=== PATIENT | female | born 1980 | race Caucasian/White ===

== ENCOUNTER → 2021-11-08 13:58 | Outpatient (BNVA) | payer OTHER, SELFPAY | PROVIDERS: PCP Physician Assistant Medical; Visit Provider Dietitian, Registered | DX: E66.9 Obesity, unspecified (principal) | CPT/HCPCS: 97802 ==

== ENCOUNTER 2022-04-16 10:58 | Outpatient (REF) | payer OTHER, SELFPAY ==
[2022-04-16 14:26] LABS: C Reactive Protein 1.14 mg/dL (< or = 0.50)
[2022-04-16 14:59] LABS: Erythrocyte Sedimentation Rate 28 MM/HR (0-20)
== END 2022-04-16 10:59 | disposition home or self-care (01) ==
LOC: HO.10HDL 10:58
PROVIDERS: Visit Provider Internal Medicine Rheumatology
DX: M25.50 Pain in unspecified joint (principal); M47.816 Spondylosis without myelopathy or radiculopathy, lumbar region; M19.049 Primary osteoarthritis, unspecified hand; M79.7 Fibromyalgia
CPT/HCPCS: 36415; 85652; 86140; 99212

== ENCOUNTER 2023-01-09 10:01 | Outpatient (REF) | payer OTHER, SELFPAY ==
--- NOTE | 2023-01-09 10:05 | EMG_ITS ---
Bilateral tibial and peroneal motor studies were performed. Bilateral superficial peroneal, sural, and medial and lateral plantar mixed studies were performed. Tibial H reflexes were obtained. Needle examination was performed. 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 MD MALIKA Alfredo/JIMBO / [id number]
== END 2023-01-09 10:02 | disposition home or self-care (01) ==
LOC: HO.NEURO 10:01
PROVIDERS: PCP Internal Medicine; Visit Provider Nurse Practitioner Family
DX: R20.2 Paresthesia of skin (principal); M25.50 Pain in unspecified joint
CPT/HCPCS: 95886; 95913

== ENCOUNTER 2023-02-05 10:11 | Outpatient (AMB) | payer OTHER, SELFPAY ==
[2023-02-05 10:47] VITALS: BMI 32.1
--- NOTE | 2023-02-05 10:47 | MHC.AMNUTRGE ---
Intake VS Expanded 02/05/23 10:47 Height 5 ft 2 in Weight 175 lb 7.807 oz BMI 32.1 Intake Visit Reasons: Follow up Allergies topiramate [From Topamax] Adverse Reaction (Unknown, Verified 04/16/22 09:39) Unknown HPI Nutrition Presentation Details Pt presents today for MNT for morbid obesity. The Pt was referred by Dr. Sylvester Isaac Pt was 203 lbs in 11/2021 at time of referral. Pt reports having had a cholecystectomy in Jul 2022 and since then she reports increased bowel movements, and diarrhea. Pt reports self treating diarrhea with imodium. Pt reports this has further contributed to weight loss, of 25 lbs since Jul 2022. She reports that for the past month or so she is maintaining at 175 lbs. Pt reports working n not eating past 7 pm and this often leads to increased diarrhea. food frequency dairy : reports omitting, may have cheese 2 x/wk fruits : juice and fruit 1-2 /d starches : rice/root veg, pasta 16 serving/d vegetables: 0-1serving/d protein foods: poultry, beef, eggs beverages: water, gatorate, juice physical activity:daily life activities SMoking: denies ETOH: denies Most Recent Diabetes Results: No Data to Display [facility] Medical History (Updated 12/30/22 @ 15:05 by LAMONTE Schwartz) Diffuse arthralgia Surgical History (Updated 04/10/22 @ 13:11 by ELIZABETH Giles) History of removal of ovarian cyst Hx of section Hx of hysterectomy Family History (Updated 04/10/22 @ 13:14 by ELIZABETH Giles) Mother Diabetes Hypertension Depression Arthritis Father Diabetes Myocardial infarction, Onset Age: 56 Stroke Brother Diabetes Lung cancer Maternal Grandmother Breast cancer Social History (Updated 04/16/22 @ 09:42 by Pancho Mejia LPN) Household Members: Family Housing: House Alcohol intake: never Patient Tobacco Use Status: Never used Tobacco e-Cigarette/Vaping Use: Never Used service: No Current occupational status: unemployed 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 Pt's set goal (Date: 11/08/21 ): reduce on carbohydrate portion in the evening : 1 c cooked starch at follow up (Date: ): met 25% 50% 100% Not met Used wt : 203 lbs ( 92 kg) Est kcal as per MSJ: 1855-250 = 1605 (40% carb, 30% fat/prot) Est fluid needs: 2300 ml/d (25 ml/kg bw) Rec fiber: increase to 8-10 g per day and gradually increase to 25 g/d or as tolerated Rec Na: < 2000 mg /d Educate patient on: (R= Reviewed, V = verbalizes understanding N/R= Needs review N/A= not applicable) Food sources of carbohydrates and serving adequate serving sizes : N/R Difference between complex carbohydrates and simple carbohydrates, role of fiber: R Differences between fats (MUFA/PUFA/saturated fats, trans fats) and food sources of various fats: R Food sources of sodium and salt and healthy modifications for heart health and kidney health: R Vitamins and minerals: R How to interpret food labels: N/R Healthy Plate method concept: R Physical activity: benefits and precaution: R Patient Instructions: Discuss diarrhea episodes with your doctor and may recommend referral to surplus property disposal agent Keep hydrated by having soups/water Follow low fat diet and incorporate soluble fiber Coding Level of Care Code Nutr Indiv Subseq (32851) Diagnoses Obesity (BMI 30-39.9) E66.9 Time Spent (min) 25
== END 2023-02-05 11:30 | disposition home or self-care (01) ==
PROVIDERS: PCP Internal Medicine; Visit Provider Dietitian, Registered
DX: E66.9 Obesity, unspecified (principal)

== ENCOUNTER → 2023-02-05 10:11 | Outpatient (BNVA) | payer OTHER, SELFPAY | PROVIDERS: PCP Internal Medicine; Visit Provider Dietitian, Registered | DX: E66.9 Obesity, unspecified (principal); Z68.32 Body mass index [BMI] 32.0-32.9, adult | CPT/HCPCS: 97803 ==

== ENCOUNTER 2023-03-13 15:17 | Outpatient (AMB) | payer OTHER, SELFPAY ==
--- NOTE | 2023-03-13 15:25 | MHC.OFFVIS ---
Intake Vital Signs 03/13/23 15:27 Height 5 ft 2 in Weight 172 lb 8 oz BMI 31.5 BP 118/80 Blood Pressure Location Lt brachial Position Sitting Pulse 63 Pulse Source Pulse Oximeter Pulse Oximetry (%) 98 Oxygen Delivery Method Room Air Intake Visit Reasons: f/u appt couldn't come yesterday - Confirmed Intake Note: Pt presents today in fup for migraines, she states last 3 weeks shes having more issues . Recent uptick in loose bowels and headaches, shes lost weight . She did have a nerve conduction study recently also . Allergies topiramate [From Topamax] Adverse Reaction (Unknown, Verified 03/13/23 15:31) Unknown Medication List - Last Reconciled 03/13/23 by Mya Scott, LAMONTE baclofen 10 - 20 mg (1 - 2 x 10 mg) PO BEDTIME PRN 30 days zgomeqdqeu-zcibdfgeifxmn-powm 50-325-40 mg 1 tab PO Q4H PRN 30 days zcptzpuqny-jtaedapruzouf-kseo 50-325-40 mg 1 cap PO Q4H PRN 30 days fluticasone propionate 50 mcg/actuation (Allergy Relief (fluticasone)) 2 sprays intranasal DAILY ibuprofen 800 mg PO Q8H PRN nortriptyline 40 mg (4 x 10 mg) PO BEDTIME 30 days tizanidine (Zanaflex) 2 mg PO Q8H PRN HPI HPI Comments History of Present Illness Details 42-yr-old female presents for f/u visit. Pt was last seen by me in September 2020 at [facility]. Since the last visit, pt had reached out to f/u on previously ordered BLE EMG/NCS. She often has buring foot pain especially when at work and on her feet all day. The BLE EMG/NCS results were c/w a brittney tarsal tunnel syndrome. After she had the BLE EMG/NCS- she has a sensation of and insect running over her left upper back. This can happen if sitting or at work. She reports that for some time, her migraines were under control. However in the last month or two, she has had an almost daily migraine a/w brain fog, photo/phonophobia. She is off her Aimovig, which was previously very helpful- states insurance denied it. She is using fIoricet prn. She is working at [employer] in the [employer]. 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 [facility] Medical History Diffuse arthralgia Surgical History History of removal of ovarian cyst Hx of hysterectomy Hx of section Family History Mother Diabetes Hypertension Depression Arthritis Father Diabetes Myocardial infarction, Onset Age: 56 Stroke Brother Diabetes Lung cancer Maternal Grandmother Breast cancer Social History Household Members: Family Housing: House Alcohol intake: never Patient Tobacco Use Status: Never used Tobacco e-Cigarette/Vaping Use: Never Used service: No Current occupational status: unemployed Current occupation: Former DIRECTOR OF RETENTION/SCHOOL BUSINESS SOLUTIONS ANALYST Review of Systems Const All systems reviewed & are unremarkable except as noted in HPI and below Physical Exam Vital Signs: Last Vital Signs Pulse 63 03/13/23 15:27 BP 118/80 03/13/23 15:27 Pulse Ox 98 03/13/23 15:27 Oxygen Delivery Method Room Air 03/13/23 15:27 BMI result Body Mass Index 31.5 Const General: cooperative and no acute distress Orientation/consciousness: patient oriented x3 HEENT Head: Yes normocephalic Resp Effort & Inspection: normal respiratory effort and able to speak in complete sentences Back/Spine/Pelvis Other: Left upper back muscle tightness Neuro General: patient oriented x3, gait normal and CN's II-XI intact bilaterally Cognition (Neuro): normal cognition Motor exam (neuro): 5/5 motor strength present throughout Deep tendon reflexes (DTR's): Right triceps reflex intensity grade: 2+, Left triceps reflex intensity grade: 2+, Rt Biceps (C5, C6): 2+, Left biceps reflex intensity grade: 2+, Right brachioradialis reflex intensity grade: 2+, Left brachioradialis reflex intensity grade: 2+, Right patellar reflex intensity grade: 2+ and Left patellar reflex intensity grade: 2+ Psych Appearance: grossly normal Mental Status: mental status grossly normal Speech and movement: Normal speech and movement present Affect: normal affect Attitude: cooperative Thought process: Normal thought process present Thought content: Normal thought content present Insight: Good insight present (Psych) Judgement: Good judgement present (Psych) Assessment & Plan Assessment & Plan (1) Tarsal tunnel syndrome, bilateral: Code(s): G57.53 - Tarsal tunnel syndrome, bilateral lower limbs (2) Cervicalgia: Code(s): M54.2 - Cervicalgia (3) Paresthesia: Code(s): R20.2 - Paresthesia of skin (4) Migraine without aura: Code(s): G43.009 - Migraine without aura, not intractable, without status migrainosus Plan Reviewed BLE EMG/NCS- brittney tarsal tunnle syndrome. Will request orthopedic consult- [facility] For cervicalgia/upper back muscle tightness/paresthesias: Will refer pt to [facility] [place]. For acute migriane tx: Trial Trudhessa sample today in hopes this breaks current prolonged migraine attack cycle. Fioricet prn. Previous acute migraine tx's: Sumatriptan helepd but caused chest tightness.. Frovatriptan- caused chest pressure. Future considerations: Gepant For migraine prevention- Resume Aimovig 140mg/ml. Continue Nortriptyline 40mg qhs. Continue Baclofen 10-20mg qhs. Previous migraine tx trials- Topamax- not tolerated. Propranolol- caused chest tightness. Sample given: Trudhessa 0.725mg/spray kit 1 box given. Instructions: 1 dose prn migraine, may repeat in 1 hr, Lot # [id number], exp 05/15/23 Orders: Orders PT Evaluation and Treatment 03/13/23 M54.2 - Cervicalgia, R20.2 - Paresthesia of skin Referrals Orthopedics Referral G57.53 - Tarsal tunnel syndrome, bilateral lower limbs, R20.2 - Paresthesia of skin Medications: New erenumab-aooe (Aimovig Autoinjector) 140 mg subcut ONCE 30 days 1 mL 6RF erenumab-aooe (Aimovig Autoinjector) 140 mg subcut ONCE 30 days 1 mL 6RF dihydroergotamine (Trudhesa) 1 spray into each nostril, MR in 1 hr (max 2 doses per day or 3 doses per week) intranasally PRN; 28 days 4 mL 6RF migraine headache G43.009 - Migraine without aura, not intractable, without status migrainosus Coding Level of Care Code Est Pt Level 4 (08292) Diagnoses Tarsal tunnel syndrome, bilateral G57.53 Cervicalgia M54.2 Paresthesia R20.2 Migraine without aura G43.009
[2023-03-13 15:27] VITALS: BP 118/80; PULSE 63; O2SAT 98; BMI 31.5
== END 2023-03-14 08:16 | disposition home or self-care (01) ==
PROVIDERS: PCP Internal Medicine; Visit Provider Nurse Practitioner Family
DX: G57.53 Tarsal tunnel syndrome, bilateral lower limbs (principal); M54.2 Cervicalgia; R20.2 Paresthesia of skin; G43.009 Migraine without aura, not intractable, without status migrainosus
CPT/HCPCS: 99214

== ENCOUNTER → 2023-03-13 15:17 | Outpatient (BNVA) | payer OTHER, SELFPAY | PROVIDERS: PCP Internal Medicine; Visit Provider Nurse Practitioner Family | DX: G57.53 Tarsal tunnel syndrome, bilateral lower limbs (principal); M54.2 Cervicalgia; R20.2 Paresthesia of skin; G43.009 Migraine without aura, not intractable, without status migrainosus; Z79.899 Other long term (current) drug therapy | CPT/HCPCS: 99212 ==

== ENCOUNTER 2023-08-20 09:29 | Outpatient (REF) | payer OTHER, SELFPAY ==
--- NOTE | ~2023-08-20 | MR_ITS ---
EXAMINATION: MR BRAIN WITHOUT AND WITH CONTRAST CLINICAL INFORMATION: Headache with orthostatic component COMPARISON: None available. TECHNIQUE: Multiplanar, multisequence MRI of the brain was obtained before and after the intravenous administration of 8 mL Gadavist. FINDINGS: No acute intracranial hemorrhage or infarct. Scattered periventricular and deep white matter T2/FLAIR hyperintensities, nonspecific. No abnormal intraparenchymal enhancement. No midline shift or hydrocephalus. No acute extra-axial fluid collections. The osseous structures are unremarkable. The pituitary gland, pineal gland and remaining midline structures are unremarkable. No orbital pathology. Mild mucosal thickening involving the ethmoid and right maxillary sinuses. The mastoid air cells are clear. MR/MR head/brain wo/w con IMPRESSION: -No acute intracranial abnormality. -Nonspecific scattered periventricular and deep white matter T2/FLAIR hyperintensities. -Mild ethmoid and right maxillary sinus disease.
[2023-08-20] MEDS: gadobutroL 10 ML VIAL IVPUSH (10:48)
== END 2023-08-20 09:30 | disposition home or self-care (01) ==
LOC: HO.MRI 09:29
PROVIDERS: PCP Internal Medicine; Visit Provider Nurse Practitioner Family
DX: R51.0 Headache with orthostatic component, not elsewhere classified (principal); H53.8 Other visual disturbances; H93.19 Tinnitus, unspecified ear; E66.9 Obesity, unspecified
CPT/HCPCS: 70553; A9585

== ENCOUNTER 2024-03-04 09:52 | Outpatient (AMB) | payer OTHER, SELFPAY ==
--- NOTE | 2024-03-04 10:35 | MHC.OFFVIS ---
Intake Visit Reasons: Follow up Intake Note: patient still having migraines doesnt have meds Allergies topiramate [From Topamax] Adverse Reaction (Unknown, Verified 03/04/24 10:36) Unknown Medication List - Last Reconciled 03/04/24 by LAMONTE Schwartz baclofen 10 - 20 mg (1 - 2 x 10 mg) PO BEDTIME PRN 30 days gmiqgfcktl-xxrqkezfbzijt-heju 50-325-40 mg 1 cap PO Q4H PRN 30 days pavwdcbhni-ubparvbvhjawm-tvwl 50-325-40 mg 1 tab PO Q4H PRN 30 days dihydroergotamine (Trudhesa) 1 spray into each nostril, MR in 1 hr (max 2 doses per day or 3 doses per week) intranasally PRN; 28 days fluticasone propionate 50 mcg/actuation (Allergy Relief (fluticasone)) 2 sprays intranasal DAILY fremanezumab-vfrm (Ajovy) 225 mg (1.5 mL) subcut ONCE 30 days ibuprofen 800 mg PO Q8H PRN metoclopramide HCl (Reglan) 5 - 10 mg (1 - 2 x 5 mg) PO Q4-6H PRN 7 days MDD 4 nortriptyline 40 mg (4 x 10 mg) PO BEDTIME 30 days omeprazole 20 mg PO DAILY 30 days prednisone 6 tabs x's 3 days, 5 tabs x's 3 days, 4 tabs x's 3 days, 3 tabs x's 3 days, 2 tabs x's 3 days, 1 tab x's 3 days, then stop. orally daily; 21 days propranolol ER 60 mg PO BEDTIME 30 days scopolamine base (Transderm-Scop) 1 patch transdermal Q3D PRN 2 weeks tizanidine (Zanaflex) 2 mg PO Q8H PRN zolmitriptan (Zomig) 1 spray intranasal Q2H PRN 30 days HPI Comments Details: 43-yr-old female presents for f/u visit. Pt denies any significant interval medical changes. Pt reports she is having an almost daily migraine, and some days the migraines are so severe, she cannot even get OOB. She was having bouts of dizziness and nausea- scopolamine helps. She did not start vestibular PT. Meclizine can help some. She is out of most of her migraine medications- did not realize insurance approved Ajovy rather than Aimovig. Amitriptyline- caused sedation. She stopped Nortriptyline- unsure why Tried Propranolol- helped but this caused blurry vision, made vision difficult to see- letters looked they were moving. Triptans have helped but caused chest heaviness. Trudhessa nasal spray was helpful and well-tolerated. Baseline headache characteristics: Pressure and throbbing in various locations can be bifrontal, biocciptal, or holocranial a/w right eye stabbing pain, photophobia, phonophobia, nausea, brain fog, activity intolerance. She does not believe she ever saw orthopedics for eval of the tarsal tunnel syndrome- she continues to have burning sensation in her feet, worse if she is on her feet all day. This is better since taking a job where she can sit more. 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 Physical Exam Const General: cooperative and no acute distress Orientation/consciousness: patient oriented x3 Resp Effort & Inspection: normal respiratory effort and able to speak in complete sentences Neuro General: patient oriented x3 Cranial nerves: Yes CN's II-XII intact bilaterally Cognition (Neuro): normal cognition Psych Appearance: grossly normal Mental Status: mental status grossly normal Speech and movement: Normal speech and movement present Affect: normal affect Attitude: cooperative Assessment & Plan Assessment & Plan (1) Migraine without aura: Code(s): G43.009 - Migraine without aura, not intractable, without status migrainosus Category: Medical (2) Vertigo: Code(s): R42 - Dizziness and giddiness Category: Medical (3) Tarsal tunnel syndrome, bilateral: Code(s): G57.53 - Tarsal tunnel syndrome, bilateral lower limbs Category: Medical Plan Reviewed BLE EMG/NCS- brittney tarsal tunnle syndrome. Will f/u on orthopedic consult- [facility] ? For dizziness and nausea: Scopolamine patch prn Meclizine prn. Vestibular PT ? For acute migriane tx: Trial Ubrogepant (Ubrelvy) 100mg tab, 1/2 - 1 tab (50-100mg) at onset of headache, may repeat in 2 hours. Max of 2 tabs (200mg) per 24 hours. May adjunct with OTC Tylenol 650mg q 4 hours, Ibuprofen 600mg q 6 hours, or Naproxen 440mg q 12 hrs prn. Do not take w/ Butalbital (Fioricet or Fiorinal). Potential adverse effects, include but are not limited to fatigue, nausea, dry mouth, constipation Fioricet prn- sparingly. Previous acute migraine tx's: Sumatriptan helped but caused chest tightness. Zomig nasal spray- caused chest heaviness. Frovatriptan- caused chest pressure. Trudhessa sample- was helpful, but was denied by insurance. ? For migraine prevention- Again start Ajovy 225mg sc q month. We will need to resubmit a new priro auth request, as previous one prior to pt starting Ajovy. Continue Nortriptyline 40mg qhs. Continue Baclofen 10-20mg qhs. Previous migraine tx trials- Topamax- not tolerated. Propranolol- caused chest tightness/vision changes. Aimovig was helpful- stopped d/t insurance coverage. Orders: Referrals Orthopedics Referral G57.53 - Tarsal tunnel syndrome, bilateral lower limbs, R20.2 - Paresthesia of skin Medications: New ubrogepant (Ubrelvy) take at onset of migraine, may repeat in 2hrs (may take w/ Ibuprofen) 50 - 100 mg (0.5 - 1 x 100 mg) PO ONCE 30 days PRN 16 tabs 3RF migraine headache Refilled nortriptyline 40 mg (4 x 10 mg) PO BEDTIME 30 days 120 caps 3RF Discontinued wzirgzwvqr-ntwlswwgxltdx-hgjv 50-325-40 mg Discontinued Reason: Duplicate 1 cap PO Q4H 30 days PRN 20 caps 1RF tension headache propranolol ER Discontinued Reason: Doctor's Order 60 mg PO BEDTIME 30 days 30 caps 3RF prednisone Discontinued Reason: Patient Completed Course 6 tabs x's 3 days, 5 tabs x's 3 days, 4 tabs x's 3 days, 3 tabs x's 3 days, 2 tabs x's 3 days, 1 tab x's 3 days, then stop. orally daily; 21 days 63 tabs 0RF zolmitriptan (Zomig) administer into one nostril (only); alternate nostrils; do not exceed 10 mg /24 hrs Discontinued Reason: Doctor's Order 1 spray intranasal Q2H 30 days PRN 6 ea 6RF headache Coding Level of Care Code Est Pt Level 4 (05690) Diagnoses Migraine without aura G43.009 Vertigo R42 Tarsal tunnel syndrome, bilateral G57.53
== END 2024-03-04 11:03 | disposition home or self-care (01) ==
PROVIDERS: PCP Internal Medicine; Visit Provider Nurse Practitioner Family
DX: G43.009 Migraine without aura, not intractable, without status migrainosus (principal); R42 Dizziness and giddiness; G57.53 Tarsal tunnel syndrome, bilateral lower limbs
CPT/HCPCS: 99214

== ENCOUNTER → 2024-03-04 09:52 | Outpatient (BNVA) | payer OTHER, SELFPAY | PROVIDERS: PCP Internal Medicine; Visit Provider Nurse Practitioner Family | DX: G43.009 Migraine without aura, not intractable, without status migrainosus (principal); R42 Dizziness and giddiness; G57.53 Tarsal tunnel syndrome, bilateral lower limbs | CPT/HCPCS: 99212 ==

== ENCOUNTER 2024-07-02 14:20 | Outpatient (AMB) | payer OTHER, SELFPAY ==
--- NOTE | 2024-07-02 14:41 | MHC.OFFVIS ---
Vital Signs 07/02/24 14:43 Height 5 ft 2 in Weight 185 lb 2 oz BMI 33.9 BP 132/72 Blood Pressure Location Rt brachial Position Sitting Pulse 76 Pulse Source Pulse Oximeter Pulse Oximetry (%) 99 Oxygen Delivery Method Room Air Intake Visit Reasons: Follow up Intake Note: Still having blurry vision. It takes 3-4 hours in the morning for vision to adjust. [employer] Driver Required: No Accompanied by: Self / Same As Patient Allergies topiramate [From Topamax] Adverse Reaction (Unknown, Verified 07/02/24 14:44) Unknown Medication List - Last Reconciled 07/02/24 by LAMONTE Schwartz baclofen 10 - 20 mg (1 - 2 x 10 mg) PO BEDTIME PRN 30 days prndyrdhxr-colyblnaqqpqj-arhv 50-325-40 mg 1 tab PO Q4H PRN 30 days cholecalciferol (vitamin D3) 50 mcg PO DAILY dihydroergotamine (Trudhesa) 1 spray into each nostril, MR in 1 hr (max 2 doses per day or 3 doses per week) intranasally PRN; 28 days fluticasone propionate 50 mcg/actuation (Allergy Relief (fluticasone)) 2 sprays intranasal DAILY fremanezumab-vfrm (Ajovy) 225 mg (1.5 mL) subcut ONCE 30 days ibuprofen 800 mg PO Q8H PRN metoclopramide HCl (Reglan) 5 - 10 mg (1 - 2 x 5 mg) PO Q4-6H PRN 7 days MDD 4 nortriptyline 40 mg (4 x 10 mg) PO BEDTIME 30 days omeprazole 20 mg PO DAILY 30 days scopolamine base (Transderm-Scop) 1 patch transdermal Q3D PRN 2 weeks tizanidine (Zanaflex) 2 mg PO Q8H PRN ubrogepant (Ubrelvy) 50 - 100 mg (0.5 - 1 x 100 mg) PO ONCE PRN 30 days Do you need a note to return to daycare/school/sports/work: No HPI Comments Details: 43-yr-old female presents for f/u visit of migraine and dizziness. Pt reports she has recently recovered from a viral gastroenteritis, and prior to that a PNA about 1.5 months ago. 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 Pt reports she has been having almost daily migraine but not as severe as before, but notes that the 1st and 2nd time she lost the dose of Ajovy due to injection error technique- thought it was the same as the Aimovig injection. She has noticed much effect from the Ubrelvy. She is noticing more forgetfulness- such as forgetting what she was just talking about or what she was just about to do. She continue to have bouts of dizziness and nausea. She did not start vestibular PT. Meclizine helps the dizziness some. Scopolamine patch helps the nausea- sometimes can cause a mild headache. She does not believe she ever saw orthopedics for eval of the tarsal tunnel syndrome- she continues to have burning/heat sensation in her feet, worse if she is on her feet all day. This is better since taking a job where she can sit more. She states that the orthopedic office did call her, however they were supposed to call her back with an appointment time and she did not hear back, and she did not have the number to call him back. 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 Physical Exam Vital Signs: Last Vital Signs Pulse 76 07/02/24 14:43 BP 132/72 07/02/24 14:43 Pulse Ox 99 07/02/24 14:43 Oxygen Delivery Method Room Air 07/02/24 14:43 BMI result Body Mass Index 33.9 Const General: cooperative and no acute distress Orientation/consciousness: patient oriented x3 Resp Effort & Inspection: normal respiratory effort and able to speak in complete sentences Neuro General: patient oriented x3 Cranial nerves: Yes CN's II-XII intact bilaterally Cognition (Neuro): normal cognition Psych Appearance: grossly normal Mental Status: mental status grossly normal Speech and movement: Normal speech and movement present Affect: normal affect Attitude: cooperative Assessment & Plan Assessment & Plan (1) Migraine without aura: Code(s): G43.009 - Migraine without aura, not intractable, without status migrainosus Category: Medical (2) Vertigo: Code(s): R42 - Dizziness and giddiness Category: Medical (3) Tarsal tunnel syndrome, bilateral: Code(s): G57.53 - Tarsal tunnel syndrome, bilateral lower limbs Category: Medical Plan For BLE paresthesias: BLE EMG/NCS- brittney tarsal tunnle syndrome. Will f/u on orthopedic consult- [facility] ? For dizziness and nausea: Scopolamine patch prn Meclizine prn. Hold Vestibular PT order for now. ? For acute migriane tx: Discontinue Ubrogepant (Ubrelvy) 100mg tab- not effective at this time. Hold Fioricet prn order. Trial Rimegepant ODT (Nurtec ODT) 75mg, 1 tab at onset of headache.. Max of 1 tabs (75mg) per 24 hours. May adjunct with OTC Tylenol 650mg q 4 hours, Ibuprofen 600mg q 6 hours, or Naproxen 440mg q 12 hrs prn. Do not take w/ Butalbital (Fioricet or Fiorinal). Potential adverse effects, include but are not limited to fatigue, nausea, dry mouth, constipation.. Previous acute migraine tx's: Sumatriptan helped but caused chest tightness. Zomig nasal spray- caused chest heaviness. Frovatriptan- caused chest pressure. Trudhessa sample- was helpful, but was denied by insurance. Ubrelvy-not effective ? For migraine prevention- Continue Ajovy 225mg sc q month- injection technique education provided using Ajovy demo autoinjector pen. Patient is due for injection today. We will follow up with her in 1-2 weeks to assess efficacy, as the Prior Auth expires on 06/21/2024. Continue Nortriptyline 40mg qhs. Continue Baclofen 10-20mg qhs. Previous migraine tx trials- Topamax- not tolerated. Propranolol- caused chest tightness/vision changes. Aimovig was helpful- stopped d/t insurance coverage. Will follow-up upon review of above and patient to follow-up in clinic in 6 months or sooner prn. Medications: New rimegepant (Nurtec ODT) 75 mg PO ONCE 30 days PRN 16 tabs 6RF migraine headache MDD 1 tab meclizine 12.5 mg PO TID 30 days PRN 30 tabs 3RF dizziness diclofenac potassium 50 mg PO BID 30 days PRN 60 tabs 3RF pain Changed From scopolamine base (Transderm-Scop) 1 patch transdermal Q3D 2 weeks PRN 4 ea 1RF diziness To scopolamine base (Transderm-Scop) 1 patch transdermal Q3D 30 days PRN 4 ea 3RF diziness Refilled nortriptyline 40 mg (4 x 10 mg) PO BEDTIME 30 days 120 caps 6RF Discontinued dihydroergotamine (Trudhesa) Discontinued Reason: Insurance Denied 1 spray into each nostril, MR in 1 hr (max 2 doses per day or 3 doses per week) intranasally PRN; 28 days 4 mL 6RF migraine headache G43.009 - Migraine without aura, not intractable, without status migrainosus ubrogepant (Ubrelvy) take at onset of migraine, may repeat in 2hrs (may take w/ Ibuprofen) Discontinued Reason: Doctor's Order 50 - 100 mg (0.5 - 1 x 100 mg) PO ONCE 30 days PRN 16 tabs 3RF migraine headache Coding Level of Care Code Est Pt Level 4 (95043) Diagnoses Migraine without aura G43.009 Vertigo R42 Tarsal tunnel syndrome, bilateral G57.53
[2024-07-02 14:43] VITALS: BP 132/72; PULSE 76; O2SAT 99; BMI 33.9
== END 2024-07-02 15:33 | disposition home or self-care (01) ==
PROVIDERS: PCP Internal Medicine; Visit Provider Nurse Practitioner Family
DX: G43.009 Migraine without aura, not intractable, without status migrainosus (principal); R42 Dizziness and giddiness; G57.53 Tarsal tunnel syndrome, bilateral lower limbs
CPT/HCPCS: 99214

== ENCOUNTER → 2024-07-02 14:20 | Outpatient (BNVA) | payer OTHER, SELFPAY | PROVIDERS: PCP Internal Medicine; Visit Provider Nurse Practitioner Family | DX: G43.009 Migraine without aura, not intractable, without status migrainosus (principal); G57.53 Tarsal tunnel syndrome, bilateral lower limbs; R42 Dizziness and giddiness | CPT/HCPCS: 99212 ==